=== PATIENT | male | born 1950 | race Caucasian/White ===

== ENCOUNTER → 2016-08-31 | Outpatient (CLI) | payer OTHER ==
--- NOTE | 2016-08-31 09:53 | DIAGNOSTIC IMAGING REPORT ---
ABDOMEN FOR HERNIA ultrasound CLINICAL HISTORY: Left scrotal swelling. Left groin pain. COMPARISON STUDY: None. FINDINGS: Small fat-containing reducible left inguinal hernia. No masses or fluid collections identified. IMPRESSION: Small fat-containing reducible left inguinal hernia. Electronically signed by: Luis Miguel Yeager M.D. 08/31/2016 9:51 AM Dictated Date/Time: 08/31/2016 9:50 AM
--- NOTE | 2016-08-31 10:13 | DIAGNOSTIC IMAGING REPORT ---
TESTICULAR ULTRASOUND CLINICAL HISTORY: N50.819 Testis painN50.89 Scrotal [id number] COMPARISON STUDY: No previous studies for comparison. FINDINGS: The right testis measures 45 x 37 x 23 mm. The left testis measures 46 x 30 x 23 mm. No intratesticular masses are visualized. There is a 6 mm right-sided scrotolith. There is no evidence of testicular torsion. IMPRESSION: 1. No evidence of testicular torsion 2. No evidence of intratesticular mass 3. 6 mm right-sided scrotolith Electronically signed by: Scotty Rosario M.D. 08/31/2016 10:11 AM Dictated Date/Time: 08/31/2016 10:00 AM
== END | disposition home or self-care (01) ==
LOC: C.ULTRBC 09:04
PROVIDERS: ATTEND Nurse Practitioner Family
DX: N50.89 Other specified disorders of the male genital organs (principal); N50.819 Testicular pain, unspecified; K40.90 Unilateral inguinal hernia, without obstruction or gangrene, not specified as recurrent